=== PATIENT | male | born 1990 | race Caucasian/White ===

== ENCOUNTER 2021-03-04 17:17 | Emergency (ER) | payer BC ==
[~2021-03-04] VITALS: Ht 175.3 cm; Wt 93.2 kg
[~2021-03-04 17:17] MED LIST: PROVENTIL0.09 MG/A1 IH; RT ADVAIR 228 DISKUS IH; VYVANSE30 MG PO
[2021-03-04 18:30] LABS: BASO # 0.1 K/mm3 (0.0-0.2); BASO % 0.9 % (0.0-2.0); EOS # 0.3 K/mm3 (0.0-0.7); EOS % 3.9 % (0-4.0); GRAN # 3.6 K/mm3 (1.4-6.5); GRAN % 53.7 % (42.2-75.2); HEMATOCRIT 46.9 % (42.0-52.0); HEMOGLOBIN 16.2 g/dl (13.5-18.0); LYMPH # 2.1 K/mm3 (1.2-3.4); LYMPH % 30.9 % (20.0-51.0); MEAN CELL VOLUME 91 fl (80.0-100.0); MEAN CORPUSCULAR HEMOGLOBIN 32 pg (27.0-31.0); MEAN CORPUSCULAR HGB CONC 35 g/dl (33.0-37.0); MEAN PLATELET VOLUME 9.7 fl (7.4-10.4); MONO # 0.7 K/mm3 (0.1-0.6); MONO % 10.3 % (1.7-9.3); PLATELET COUNT 312 K/mm3 (130-400); RED BLOOD COUNT 5.14 M/mm3 (4.20-5.60); REDCELL DISTRIBUTION WIDTH-CV 11.6 % (11.5-14.5)
[2021-03-04 18:44] LABS: ALBUMIN 4.1 gm/dL (3.5-5.0); BILIRUBIN,TOTAL 0.4 mg/dL (0.2-1.2); C-REACTIVE PROTEIN 0.2 mg/dL (0.00-0.50); CALCIUM 9.3 mg/dL (8.4-10.2); CREATININE, serum 0.92 mg/dL (0.72-1.25); POTASSIUM 3.9 mmol/L (3.5-4.5); TOTAL PROTEIN 7.1 gm/dL (6.2-8.1)
[2021-03-04 20:02] VITALS: BP 121/75; PULSE 65; TEMP 98.1
== END 2021-03-04 20:02 | disposition home or self-care (01) ==
LOC: COL.ER 17:17
PROVIDERS: Emergency Medicine
DX: K92.2 Gastrointestinal hemorrhage, unspecified (principal); J45.909 Unspecified asthma, uncomplicated; F90.9 Attention-deficit hyperactivity disorder, unspecified type; Z79.899 Other long term (current) drug therapy
CPT/HCPCS: J7030

== ENCOUNTER → 2021-03-06 | Day surgery (SDC) | payer BC ==
[~2021-03-06] VITALS: Ht 175.3 cm; Wt 94.5 kg
[2021-03-06 07:48] VITALS: BP 140/72; PULSE 73; TEMP 98.2
[2021-03-06 08:40] VITALS: BP 118/68; PULSE 65
[2021-03-06 08:55] VITALS: BP 119/70; PULSE 73
[2021-03-06 09:10] VITALS: BP 126/99; PULSE 75
--- NOTE | 2021-03-06 09:20 | NUR ---
0840 - Pt returns from endo procedure via cart to [facility] . Pt ambulates from cart to recliner with RN assist. Monitors on and alarms set. Call light within reach. Pt alert and oriented. Pt requests peanut butter toast. Pt denies any pain or nausea. in to see pt. 0855 - Pt taking food and drink well. No complications noted. 0910 - Discharge instructions given to pt. All questions answered to pt satisfaction. Handed to pt are a thank you card and discharge information. 0920 - Pt transferred out of the hospital via wheelchair, to private vehicle driven by [employer] truck driver.
== END ==
LOC: SDCO 06:57
DX: K92.1 Melena (principal); R19.4 Change in bowel habit; R19.7 Diarrhea, unspecified; K64.0 First degree hemorrhoids; K62.89 Other specified diseases of anus and rectum; K60.0 Acute anal fissure; I48.91 Unspecified atrial fibrillation; J45.909 Unspecified asthma, uncomplicated; K21.9 Gastro-esophageal reflux disease without esophagitis; F90.9 Attention-deficit hyperactivity disorder, unspecified type
CPT/HCPCS: J2704; J7030